=== PATIENT | female | born 1955 | race Caucasian/White ===

== ENCOUNTER → 2023-12-23 09:57 | Outpatient (BNVA) | payer MEDICARE, OTHER, SELFPAY | PROVIDERS: Visit Provider Internal Medicine | DX: E03.9 Hypothyroidism, unspecified (principal); R53.83 Other fatigue; E06.3 Autoimmune thyroiditis; G47.00 Insomnia, unspecified; Z79.890 Hormone replacement therapy | CPT/HCPCS: 99204 ==

== ENCOUNTER → 2024-02-24 10:00 | Outpatient (BNVA) | payer MEDICARE, OTHER, SELFPAY | PROVIDERS: Visit Provider Internal Medicine | DX: E06.3 Autoimmune thyroiditis; R53.83 Other fatigue; G47.00 Insomnia, unspecified; R73.09 Other abnormal glucose; R73.9 Hyperglycemia, unspecified; Z79.890 Hormone replacement therapy | CPT/HCPCS: 36415; 83036; 83516; 86376; 86800; 99214 ==

== ENCOUNTER → 2024-03-12 10:46 | Outpatient (BNVA) | payer MEDICARE, OTHER, SELFPAY | PROVIDERS: Visit Provider Internal Medicine | DX: E06.3 Autoimmune thyroiditis; R53.83 Other fatigue; G47.00 Insomnia, unspecified; R73.9 Hyperglycemia, unspecified; Z79.890 Hormone replacement therapy | CPT/HCPCS: 99214 ==

== ENCOUNTER → 2024-08-25 11:14 | Outpatient (BNVA) | payer MEDICARE, OTHER, SELFPAY | PROVIDERS: Visit Provider Internal Medicine | DX: E03.9 Hypothyroidism, unspecified (principal); R53.83 Other fatigue; E06.3 Autoimmune thyroiditis; G47.00 Insomnia, unspecified; E05.00 Thyrotoxicosis with diffuse goiter without thyrotoxic crisis or storm; R73.03 Prediabetes | CPT/HCPCS: 99214 ==

== ENCOUNTER → 2025-02-24 11:28 | Outpatient (BNVA) | payer MEDICARE, OTHER, SELFPAY | PROVIDERS: Visit Provider Internal Medicine | DX: E03.9 Hypothyroidism, unspecified (principal); R53.83 Other fatigue; E06.3 Autoimmune thyroiditis; G47.00 Insomnia, unspecified; E05.00 Thyrotoxicosis with diffuse goiter without thyrotoxic crisis or storm; R73.03 Prediabetes | CPT/HCPCS: 99214 ==